=== PATIENT | female | born 1985 | race Caucasian/White ===

== ENCOUNTER 2019-03-25 16:06 | Inpatient (IN) ==
[2019-03-25] MEDS ORDERED: TUBERSOL ID ONE (16:36)
[2019-03-25] MEDS ORDERED: IMODIUM PO PRN ×2 (17:12)
[2019-03-25] MEDS ORDERED: SENOKOT PO PRN (17:12)
[2019-03-25] MEDS ORDERED: NICOTINE GUM BUCCAL PRN (17:12)
[2019-03-25] MEDS ORDERED: PHENOBARBITAL IV PRN (17:12)
[2019-03-25] MEDS ORDERED: MAALOX PLUS LIQUID PO PRN (17:12)
[2019-03-25] MEDS ORDERED: DESYREL PO PRN (17:12)
[2019-03-25] MEDS ORDERED: D5W 1,000 ML IV PRN (17:12)
[2019-03-25] MEDS ORDERED: MOTRIN PO PRN (17:12)
[2019-03-25] MEDS ORDERED: ZOFRAN IM PRN (17:12)
[2019-03-25] MEDS ORDERED: TYLENOL PO PRN (17:12)
[2019-03-25] MEDS ORDERED: ZOFRAN ODT PO PRN (17:12)
[2019-03-25] MEDS ORDERED: DULCOLAX PR PRN (17:12)
[2019-03-25] MEDS ORDERED: ZOFRAN IV PRN (17:12)
[2019-03-25 17:37] LABS: HEMATOCRIT 35.1 % (37.0-47.0); HEMOGLOBIN 11.5 g/dL (12.0-16.0); MCHC 32.8 g/dL (33-37); MCV 85.6 FL (81-99); MPV 8.3 FL (7.4-10.4); RBC 4.1 XMIL (4.2-5.4); RDW 12.9 % (11.5-14.5); WBC 5.18 X1000 (4.8-10.8)
[2019-03-25] MEDS ORDERED: ATARAX PO PRN (17:50)
[2019-03-25] MEDS ORDERED: LIBRIUM PO PRN (17:50)
[2019-03-25] MEDS ORDERED: BENTYL PO PRN (17:50)
[2019-03-25 17:56] LABS: INR 0.96; PROTIME 13.3 Seconds (11.0-16.0)
[2019-03-25 17:57] LABS: URINE SOURCE CLEAN CATCH
[2019-03-25 18:00] LABS: BILIRUBIN URINE NEGATIVE (NEGATIVE); BLOOD URINE 4+ (NEGATIVE); CLARITY VERY CLOUDY (CLEAR); COLOR RED; GLUCOSE URINE NEGATIVE (NEGATIVE); KETONE URINE 1+(Small) mg/dL (NEGATIVE); LEUKOCYTES URINE 1+ (NEGATIVE); NITRITE URINE NEGATIVE (NEGATIVE); PH URINE 6.5; PROTEIN URINE 2+(100 mg/dL) mg/dL (NEGATIVE); UROBILINOGEN URINE 1 mg/dL
[2019-03-25 18:05] LABS: AGAP 13; ALKALINE PHOSPHATASE 78 U/L (32-104); AMYLASE 19 U/L (20-200); BUN 16 mg/dL (8-22); CALCIUM 9.4 mg/dL (8.8-10.2); CHLORIDE 106 mmol/L (98-107); COSMO 288; CREATININE 0.6 mg/dL (0.5-0.9); ESTIMATED GFR > 60; GLUCOSE 94 mg/dL (70-104); GOT 41 U/L (10-30); GPT 42 U/L (10-36); LIPASE 19 U/L (13-60); POTASSIUM 4.1 mmol/L (3.5-5.1); SODIUM 144 mmol/L (136-145); TCO2 26 mmol/L (25-35); TOTAL PROTEIN 7.2 g/dL (6.3-8.3)
[2019-03-25 18:11] LABS: URINE BACTERIA 1+ /HFP; URINE EPITHELIAL CELLS <10 /HPF (<10); URINE RBC TNTC /HPF (<10)
[2019-03-25 18:12] LABS: UR AMPHETAMINES QUAL PRESUMPTIVE POSITIVE (NONE DETECT); UR BARBITUATES QUAL NONE DETECTED (NONE DETECT); UR BENZODIAZEPIN QUAL NONE DETECTED (NONE DETECT); UR COCAINE QUAL PRESUMPTIVE POSITIVE (NONE DETECT); UR METHADONE QUAL NONE DETECTED (NONE DETECT); UR METHAMPHETAMINE QUAL PRESUMPTIVE POSITIVE (NONE DETECT); UR OPIATES QUAL PRESUMPTIVE POSITIVE (NONE DETECT); URINE CAST NONE SEEN /LPF; URINE CRYSTAL NONE SEEN /HPF; URINE WBC <10 /HPF (<10); URINE YEAST NONE SEEN /HPF
[2019-03-25 18:13] LABS: UR CANNABINOIDS QUAL NONE DETECTED (NONE DETECT); UR OXYCODONE QUAL NONE DETECTED (NONE DETECT); UR PCP QUAL NONE DETECTED (NONE DETECT); UR PROPOXYPHENE QUAL NONE DETECTED (NONE DETECT); UR TCA QUAL NONE DETECTED (NONE DETECT)
[2019-03-25] MEDS: LIBRIUM PO SCH (18:29)
[2019-03-25] MEDS: NICODERM PATCH TD PRN (18:29)
[2019-03-25] MEDS: ROBAXIN PO PRN (21:48)
[2019-03-25] MEDS: SEROQUEL PO PRN (21:48)
[2019-03-26] MEDS: LIBRIUM PO SCH ×5 (00:07→20:10)
[2019-03-26] MEDS: PROTONIX PO SCH (06:34)
[2019-03-26] MEDS ORDERED: TORADOL IV PRN (08:07)
[2019-03-26] MEDS: ATARAX PO PRN (11:53)
[2019-03-26] MEDS: ROBAXIN PO PRN ×2 (14:22→20:10)
[2019-03-26] MEDS: FOLIC ACID PO SCH (18:10)
[2019-03-26] MEDS: THERA M PLUS PO SCH (18:11)
[2019-03-26] MEDS: VITAMIN B-1 PO SCH (18:11)
[2019-03-26] MEDS: SINEMET 25/100 PO PRN (20:39)
[2019-03-26] MEDS: SEROQUEL PO PRN (20:39)
--- NOTE | 2019-03-26 23:09 | PROGRESS NOTE ---
DATE: 03/26/2019 SUBJECTIVE: Patient notes that overall she is doing a little bit better. Denies any fevers, chills. Denies cough, congestion. PHYSICAL EXAMINATION: Vital Signs: Reviewed and stable. General: She is awake, alert. She is in no current respiratory distress. HEENT: Normocephalic. Neck: Supple. Cardiovascular: Regular rate. No murmurs. Chest: Clear. Abdomen: Soft. Extremities: Moves all extremities. ASSESSMENT: 1. Nausea, vomiting. 2. Abdominal pain. 3. Myalgias. 4. Paresthesias. 5. Paroxysmal sweating. 6. Opiate abuse, withdrawal and stabilization. PLAN: We will continue patient in the hospital. Continue Librium taper. Continue to follow. Continue counseling by myself. Further orders as needed. cc: Gordon Barragan MD
--- NOTE | 2019-03-27 01:37 | HISTORY AND PHYSICAL ---
CHIEF COMPLAINT: Nausea, vomiting. HISTORY OF PRESENT ILLNESS: The patient is a 33-year-old female who presented to [facility] program secondary to nausea, vomiting, abdominal pain, myalgias, paresthesias. Notes that she had been on Suboxone, weaned herself off and actually been doing fairly well. However, her mother has recently gone to hospice. Her boyfriend also has pain medications and she is having increased cravings and has actually started abusing again. SOCIAL HISTORY: She is single, unemployed. Lives at home in [place]. PAST MEDICAL HISTORY: Significant for severe anxiety, bipolar, history of suicide attempts [*]suicidal. She does have a history of blackouts that are related to drug use. ALLERGIES: No known drug allergies. MEDICATIONS: No current prescription medications. REVIEW OF SYSTEMS: CINA score is 19 secondary to nausea, vomiting, abdominal pain, myalgias, paresthesias, frequent dry heaves, cramping with diarrhea, frequent changes in temperature, sweating, and has frequent tremors. Denies headaches, blurred vision, change in vision. Denies any focalized numbness, tingling or weakness in her extremities. Denies dysuria, urinary frequency, urgency, hesitancy, polyuria or polydipsia. SUBSTANCE ABUSE HISTORY: The patient was in treatment at [facility] for methadone from 2008 to 2012. She was in [facility] in 2018, remained sober for approximately 2 weeks. From August of 2017 was in [facility] for 3 days, stayed on Suboxone for approximately 2 to 3 months. Notes that opiate use has caused her to be homeless, she cannot keep a job. She has had financial and relationship problems. Notes that she wants to get clean. She does not want to due to opiates due to drug use. Started drinking as early as age 11. Currently rarely drinks since 2015. Started marijuana at age 11, currently uses a couple times a year. Started depressants at 13 after her mother had given her some. States she rarely uses. Started stimulants at 16. In 2017, she was using daily, currently is only using every other week if she cannot get heroin. Started opiates at 16. She still has a severe craving. She currently uses half a gram a day IV and has so pretty much for the past 5 years. Started smoking at 11, currently smokes half pack. FAMILY HISTORY: Positive for use and abuse. PHYSICAL EXAMINATION: VITAL SIGNS: Reviewed. GENERAL: She is awake, alert. She is in no current respiratory distress. HEENT: Normocephalic. NECK: Supple. CARDIOVASCULAR: Regular rate. No murmurs. CHEST: Clear and nonlabored. ABDOMEN: Soft, nondistended, nontender. EXTREMITIES: Moves all extremities. NEUROLOGIC: No changes. ASSESSMENT: 1. Nausea, vomiting. 2. Abdominal pain. 3. Myalgias. 4. Tremors. 5. Paresthesias. 6. Paroxysmal sweating. 7. Opiate abuse, withdrawal and stabilization. 8. Chronic tobacco abuse. 9. Polysubstance use and abuse. PLAN: Discussed with patient the importance of smoking, as well as importance of staying clean and getting clean. States that she has to start avoiding persons, places and situations which she has been using and abusing in the past. Given that she is constantly around opiates at home certainly agree that Suboxone is likely her best medication assistance therapy. We are going to start her on Suboxone, begin counseling. Further orders as needed. cc: Gordon Barragan MD
[2019-03-27] MEDS: LIBRIUM PO SCH ×3 (04:19→15:38)
[2019-03-27] MEDS: FOLIC ACID PO SCH (08:11)
[2019-03-27] MEDS: VITAMIN B-1 PO SCH (08:11)
[2019-03-27] MEDS: PROTONIX PO SCH (08:11)
[2019-03-27] MEDS: THERA M PLUS PO SCH (08:11)
[2019-03-27] MEDS ORDERED: CATAPRES PO ONE (08:41)
[2019-03-27] MEDS: NICODERM PATCH TD PRN (15:40)
--- NOTE | 2019-03-27 19:47 | PROGRESS NOTE ---
DATE: 03/27/2019 SUBJECTIVE: The patient notes overall she is feeling better. Still having some muscle aches. Still does not feel back to normal. Having frequent sweating and chills, and still having paresthesias. OBJECTIVE: The patient is afebrile. She is still in mild distress due to withdrawal. HEENT: Normocephalic. Neck supple. Cardiovascular: Regular rate. No murmurs. Chest clear. Abdomen soft. Extremities: Moves all extremities. Neurologic: No changes. ASSESSMENT: 1. Nausea and vomiting. 2. Abdominal pain. 3. Myalgias. 4. Tremors. 5. Paresthesias. 6. Paroxysmal sweating. PLAN: We will continue the patient in the hospital. Continue to follow. Further orders as needed. We will add clonidine and see how she tolerates it. cc: Gordon Barragan MD
[2019-03-27] MEDS: ATARAX PO PRN (22:07)
[2019-03-27] MEDS: SEROQUEL PO PRN (22:07)
[2019-03-27] MEDS: SINEMET 25/100 PO PRN (22:07)
[2019-03-28] MEDS: LIBRIUM PO SCH ×2 (00:16→08:45)
[2019-03-28] MEDS: PROTONIX PO SCH (06:29)
[2019-03-28 08:12] VITALS: BP 108/62
[2019-03-28] MEDS: THERA M PLUS PO SCH (08:45)
[2019-03-28] MEDS: ROBAXIN PO PRN (08:45)
[2019-03-28] MEDS: VITAMIN B-1 PO SCH (08:45)
[2019-03-28] MEDS: FOLIC ACID PO SCH (08:45)
--- NOTE | 2019-03-28 13:43 | PROGRESS NOTE ---
DATE: 03/28/2019 SUBJECTIVE: The patient notes that she is feeling okay, still having some muscle aches. Denies any tremors or myalgias. PHYSICAL EXAMINATION: Vital Signs: Reviewed. General: She is awake, alert. She is in no current respiratory distress. HEENT: Normocephalic. Neck: Supple. Cardiovascular: Regular rate. No murmurs. Chest: Clear. Abdomen: Soft. Extremities: Moves all extremities. ASSESSMENT: 1. Nausea and vomiting. 2. Abdominal pain. 3. Myalgias. 4. Paresthesias. 5. Paroxysmal sweating. 6. Opiate abuse withdrawal and stabilization. PLAN: We will continue the patient in the hospital, continue Librium taper, and will follow. Continue counseling. Further orders as needed. cc: Gordon Barragan MD
--- NOTE | 2019-03-28 18:41 | DISCHARGE SUMMARY ---
ADMISSION DATE: 03/25/2019 DISCHARGE DATE: 03/28/2019 DISCHARGE DIAGNOSES: 1. Patient left against medical advice. 2. Nausea and vomiting. 3. Abdominal pain. 4. Myalgias. 5. Paresthesias. 6. Tremors. 7. Polysubstance use and abuse. CONSULTATIONS: None. PROCEDURES: None. BRIEF HOSPITAL COURSE: The patient is a 33-year-old female who was admitted to the hospital and treated with Librium taper secondary to opiate withdrawal. Taper had to be increased due to continued withdrawal symptoms. She had started feeling better as we were weaning down Librium. We continued to primary substance abuse counselor. On the date of discharge, she stated that she was going home because her refused to allow her to stay if he could not spend the night; therefore, she signed out AMA. cc: Gordon Barragan MD
== END 2019-03-28 09:36 | disposition left against medical advice (07) | DRG 894 ==
LOC: P.MEDSURG 16:06
PROVIDERS: ADMIT Family Medicine; ATTEND Family Medicine